=== PATIENT | female | born 1960 | race Hispanic/Latino ===

== ENCOUNTER → 2025-01-31 | Outpatient (REF) | payer MEDICARE, OTHER | LOC: EDSTATUS 14:00 → RESP 14:47 | PROVIDERS: ATTEND Nurse Practitioner Family | DX: C80.1 Malignant (primary) neoplasm, unspecified (principal); J18.9 Pneumonia, unspecified organism; R05.3 Chronic cough; G47.33 Obstructive sleep apnea (adult) (pediatric); J98.4 Other disorders of lung; K21.9 Gastro-esophageal reflux disease without esophagitis; J45.909 Unspecified asthma, uncomplicated | CPT/HCPCS: 94060; 94727; 94729 ==

== ENCOUNTER → 2025-03-15 | Outpatient (REF) | payer MEDICARE, OTHER | LOC: CT 06:49 | PROVIDERS: ATTEND Nurse Practitioner Family | DX: R05.3 Chronic cough (principal); J18.9 Pneumonia, unspecified organism; J98.4 Other disorders of lung; C80.1 Malignant (primary) neoplasm, unspecified; J45.909 Unspecified asthma, uncomplicated; K21.9 Gastro-esophageal reflux disease without esophagitis; G47.33 Obstructive sleep apnea (adult) (pediatric) | CPT/HCPCS: 71250 ==